=== PATIENT | male | born 1980 | race Caucasian/White ===

== ENCOUNTER 2016-12-27 06:05 | Emergency (ER) | payer OTHER ==
[2016-12-27 06:25] VITALS: BP 117/77; PULSE 83; RESP 16; TEMP 98.4; O2SAT 98
--- NOTE | 2016-12-27 06:47 | C.PDOC ---
History Of Present Illness Pt with c/o fo constipation x 3 days now with rectal pain on defecation. Denies rectal bleeding, abdominal pain, vomiting or fever Pt is S/P Gastric sleeve sx 3 weeks ago. Time Seen by Provider: 12/27/16 06:39 Chief Complaint (Nursing): GI Problem History Per: Patient History/Exam Limitations: no limitations Current Symptoms Are (Timing): Still Present Severity: Moderate Past Medical History Vital Signs: Last Vital Signs Temp 98.4 F 12/27/16 06:17 Pulse 83 12/27/16 06:17 Resp 16 12/27/16 06:17 BP 117/77 12/27/16 06:17 Pulse Ox 98 12/27/16 06:17 - Medical History PMH: Atrial Fibrillation, HTN Other Surgeries: Gastric Sleeve Family History: States: Unknown Family Hx - Social History Hx Tobacco Use: Yes Hx Alcohol Use: No Hx Substance Use: No - Immunization History Hx Influenza Vaccination: Yes Review Of Systems Gastrointestinal: Positive for: Constipation, Rectal Pain. Negative for: Melena Physical Exam - Physical Exam Appears: Well, Non-toxic Head: Atraumatic Eye(s): bilateral: Normal Inspection, PERRL Oral Mucosa: Moist Gastrointestinal/Abdominal: Normal Exam, Soft, No Tenderness Rectal: No Hemorrhoids, Tenderness (small fissures noticed at 5 and 7 oclock areas, no mass, no fluctuance, no bleeding) ED Course And Treatment O2 Sat by Pulse Oximetry: 98 Disposition - Disposition Referrals: Dequan Palacios MD [Staff Provider] - Disposition: HOME/ ROUTINE Disposition Time: 06:52 Condition: STABLE Additional Instructions: Take meds as prescribed Use sitz baths Follow up with your doctor Return to ER if worse Prescriptions: Hydrocortisone [Anusol-HC] 25 mg RC BID #20 sup Docusate [Colace] 100 mg PO TID #30 cap Instructions: Anal Fissure (ED) - Clinical Impression Clinical Impression: Anal fissure, unspecified
== END 2016-12-27 07:07 | disposition home or self-care (01) ==
LOC: C.ER 06:05
DX: K60.2 Anal fissure, unspecified (principal)

== ENCOUNTER 2016-12-28 01:08 | Day surgery (SDC) | payer OTHER ==
[2016-12-28] MEDS ORDERED: Morphine 4 MG/ML VIAL ONE ×2 (02:04→04:44)
[2016-12-28 02:17] LABS: BASO % 0.2 % (0.0-2.0); EOS # 0.1 K/uL (0.0-0.7); EOS % 0.8 % (0.0-4.0); HEMATOCRIT 38.5 % (35.0-51.0); LYMPH % 22.2 % (20.0-40.0); MEAN CELL VOLUME 86.8 fL (80.0-94.0); MEAN CORPUSCULAR HEMOGLOBIN 28.6 pg (27.0-31.0); MEAN PLATELET VOLUME 10.3 fL (7.2-11.7); MONO # 1.5 K/uL (0.0-0.8); MONO % 11.3 % (0.0-10.0); RED CELL DISTRIBUTION WIDTH 12.6 % (11.5-14.5); WHITE BLOOD COUNT 13.7 K/uL (4.8-10.8)
[2016-12-28 02:25] LABS: CHLORIDE 100 mmol/L (98-107); POTASSIUM 4.2 mmol/L (3.6-5.2); SODIUM 136 mmol/L (132-148)
[2016-12-28 02:28] LABS: BLOOD UREA NITROGEN 6 mg/dL (9-20); CARBON DIOXIDE 23 mmol/L (22-30); GFR AFRICAN-AMERICAN > 60; GLUCOSE,RANDOM 102 mg/dL (75-110)
[2016-12-28] MEDS ORDERED: Iodixanol 320 MG/ML 100 ML BOTTLE IV ONE (02:48)
--- NOTE | 2016-12-28 03:46 | C.PDOC ---
History Of Present Illness 36 year old male presents to the ER with a complaints of rectal pain for the past 2 days. Patient was seen in ED yesterday, was diagnosed with rectal fissure - given Anusol and stool softener. He states his symptoms have worsened , and he has been unable to sleep due to pain. Patient denies fever, abdominal pain, rectal bleeding, trauma/injuries. Time Seen by Provider: 12/28/16 01:24 Chief Complaint (Nursing): GI Problem History Per: Patient History/Exam Limitations: no limitations Onset/Duration Of Symptoms: Days (2) Current Symptoms Are (Timing): Still Present Severity: Moderate Quality Of Discomfort: "Pain" Associated Symptoms: denies: Fever, Other (abdominal pain, rectal bleed) Past Medical History Reviewed: Historical Data, Nursing Documentation, Vital Signs Vital Signs: Last Vital Signs Temp 97.9 F 12/29/16 07:35 Pulse 64 12/29/16 07:35 Resp 17 12/29/16 07:35 BP 108/63 12/29/16 07:35 Pulse Ox 97 12/29/16 07:35 - Medical History PMH: Atrial Fibrillation, HTN - [facility] Procedures DRAINAGE OF RECTUM WITH DRAINAGE DEVICE, PERC APPROACH (12/28/16) DRAINAGE OF RECTUM, PERCUTANEOUS APPROACH, DIAGNOSTIC (12/28/16) INSPECTION OF LOWER INTESTINAL TRACT, ENDO (12/28/16) Family History: States: No Known Family Hx - Social History Hx Tobacco Use: Yes Hx Alcohol Use: No Hx Substance Use: No - Immunization History Hx Influenza Vaccination: Yes Review Of Systems Except As Marked, All Systems Reviewed And Found Negative. Constitutional: Negative for: Fever, Chills Cardiovascular: Negative for: Chest Pain, Palpitations Respiratory: Negative for: Cough, Shortness of Breath Gastrointestinal: Positive for: Rectal Pain. Negative for: Nausea, Vomiting, Abdominal Pain, Diarrhea, Melena, Hematochezia Physical Exam - Physical Exam Appears: Non-toxic, Other (Mild to moderate distress) Skin: Normal Color, Warm, Dry Head: Normacephalic Oral Mucosa: Moist Cardiovascular: Rhythm Regular Respiratory: Normal Breath Sounds, No Rales, No Rhonchi, No Wheezing Gastrointestinal/Abdominal: Normal Exam, Bowel Sounds, Soft, No Tenderness, Other (Obese) Rectal: No Melena, No Hemorrhoids, Tenderness (at 7'o clock abscess visualized, (+) TTP ), Other (Erythemous surrounding anal opening, no bleeding, no internal masses ) Neurological/Psych: Oriented x3 ED Course And Treatment - Laboratory Results Result Diagrams: 12/28/16 02:14 12/28/16 02:14 ECG: Interpreted By Me, Viewed By Me (NSR 74 bpm, normal axis, RBBB, no acute ST /T wave changes) ECG Interpretation: No Acute Changes, Abnormal O2 Sat by Pulse Oximetry: 98 (Room air) Pulse Ox Interpretation: Normal - Radiology CXR: Interpreted by Me, Viewed By Me (NO INFILTRATES/EFFUSIONS) - CT Scan/US CT PELVIS WITH IV CONTRAST Other Rad Studies (CT/US): Read By Radiologist, Radiology Report Reviewed CT/US Interpretation: Name: DILIA JOYCE Age: 36Years M Date: 12/28/2016. Requesting Physician: DONG ORTEZ : 1980. [facility] Procedure Ordered As Accession Number of Images. CT PELVIS W CT PELVIS W IV CONTRAST ONLY [id number]. Provided Clinical History: RECTAL PAIN SWELLING, R/O ABSCESS. Page 1 of 2. EXAM: CT Pelvis With Intravenous Contrast. CLINICAL HISTORY: 36 years old, male; Pain and signs and symptoms; Swelling or effusion of joint. and other: Rectal pain, and R/O abscess; Bilateral; Abdominal pain and perianal pain; Lower. abdomen; Prior surgery; Additional info: Rectal pain swelling, R/O abscess. TECHNIQUE: Axial computed tomography images of the pelvis with intravenous contrast. This CT. exam was performed using one or more of the following dose reduction techniques: automated. exposure control, adjustment of the mA and/or kV according to patient size, and/or use of iterative. reconstruction technique. Coronal and sagittal reformatted images were created and reviewed. COMPARISON: No relevant prior studies available. FINDINGS: Bowel: Unremarkable. Appendix: Normal appendix. Intraperitoneal space: Unremarkable. No free air. No significant fluid collection. Bladder: Unremarkable. No mass. Reproductive: Unremarkable as visualized. Bones/joints: No acute fracture. No dislocation. Soft tissues: 3.0 x 2.8 cm perirectal abscess immediately posterior to the anus. Vasculature : Unremarkable. No lower abdominal aortic aneurysm. Lymph nodes: Small retroperitoneal lymph nodes which are within normal limits in size. IMPRESSION : 3.0 x 2.8 cm perirectal abscess immediately posterior to the anus. Thank you for allowing us to participate in the care of your patient. Dictated and Authenticated by: Prudencio Staton MD. 12/28/2016 3:59 AM Eastern Time ([place] & [place]) Progress Note: Blood work and CT scan of pelvis w/ IV constrast ordered and reviewed. Patient given IV morphine for pain. 4:20am - Call placed to Dr. Houser's service, pending call back. 5:05am- Spoke with Dr. Houser, he states he is going away this morning, and requests I speak with Dr. Shivam Blair. Pending call back. 5:10am- Spoke with Dr. Blair, she would like surgery resident to come and evaluate patient. 5:40pm- Patient evaluated by surgery resident Dr. Acosta - Patient will need to be admitted, get Iv antibiotics and drained in the OR. - Physician Consult Information Physician Contacted: Shivam Blair Disposition - Disposition Disposition: HOSPITALIZED Disposition Time: 05:48 Condition: STABLE - Clinical Impression Clinical Impression: Perirectal abscess - Scribe Statement The provider has reviewed the documentation as recorded by the Scribe Kevin Allen All medical record entries made by the Scribe were at my direction and personally dictated by me. I have reviewed the chart and agree that the record accurately reflects my personal performance of the history, physical exam, medical decision making, and the department course for this patient. I have also personally directed, reviewed, and agree with the discharge instructions and disposition. Decision To Admit - Pt Status Changed To: Hospital Disposition Of: Inpatient - Admit Certification Admit to Inpatient:: After my assessment, the patient will require hospitalization for at least two midnights. This is because of the severity of symptoms shown, intensity of services needed, and/or the medical risk in this patient being treated as an outpatient. - InPatient: Physician Admission Certification:: see notes - . Bed Request Type: Regular Admitting Physician: Shivam Blair Patient Diagnosis: Perirectal abscess
[2016-12-28] MEDS ORDERED: Sodium Chloride 0.9% 1,000 ML IV ONE (04:38)
[2016-12-28] MEDS ORDERED: metroNIDAZOLE IV 500 mg/100 ml 100 ML IV STA (05:50)
[2016-12-28] MEDS ORDERED: Ciprofloxacin 400mg/200ml D5W 200 ML IV STA (05:50)
[2016-12-28] MEDS ORDERED: metroNIDAZOLE IV 500 mg/100 ml 100 ML ONE (06:11)
--- NOTE | 2016-12-28 06:19 | CP.PCM.HP ---
History of Present Illness - History of Present Illness History of Present Illness: 36 M w/ PMHx of Afib presents to ED w/ complaints of rectal pain. Patient reports pain began about 2 days ago, after eating soup. Patient was in ED yesterday (12/27), and was given anuson and stool softener and d/c'ed home. However, patient states pain worsened and decided to come back. Patient experiences sharp pain along anal region while sitting, walking, and defecating. Patient reports this is the first time he has experienced this. Patient denies fever/chills, chest pain/SOB, hematemesis/hematochezia. Patient reports pain with defecation. PMHx: Afib Allergies: NKDA Present on Admission - Present on Admission Any Indicators Present on Admission: No Review of Systems - Review of Systems Review of Systems: 12 pt ROS carried out, unremarkable; except as stated in HPI Past Patient History - Past Medical History & Family History Past Medical History?: Yes - Past Social History Smoking Status: Former Smoker - CARDIAC Hx Atrial Fibrillation: Yes Hx Hypertension: Yes - NEUROLOGICAL Hx Neurological Disorder: No - HEENT Hx HEENT Problems: No - ENDOCRINE/METABOLIC Hx Endocrine Disorders: No - HEMATOLOGICAL/ONCOLOGICAL Hx Blood Disorders: No - INTEGUMENTARY Hx Dermatological Problems: No - MUSCULOSKELETAL/RHEUMATOLOGICAL Hx Musculoskeletal Disorders: No Hx Falls: No - GASTROINTESTINAL Hx Gastrointestinal Disorders: No - GENITOURINARY/GYNECOLOGICAL Hx Genitourinary Disorders: No - PSYCHIATRIC Hx Substance Use: No - SURGICAL HISTORY Hx Surgeries: Yes Hx Gastric Bypass Surgery: Yes (Gastric sleeve 3 weeks ago) Hx Herniorrhaphy: Yes (10 yrs ago) Other/Comment: ablation 2 dys ago - ANESTHESIA Hx Anesthesia: Yes Hx Anesthesia Reactions: No Hx Malignant Hyperthermia: No Meds Allergies/Adverse Reactions: Allergies Allergy/AdvReac Type Severity Reaction Status Date / Time No Known Allergies Allergy Verified 12/27/16 06:25 Physical Exam - Constitutional Appears: No Acute Distress - Head Exam Head Exam: NORMOCEPHALIC - Eye Exam Eye Exam: Normal appearance - ENT Exam ENT Exam: Mucous Membranes Moist - Respiratory Exam Respiratory Exam: NORMAL BREATHING PATTERN - Cardiovascular Exam Cardiovascular Exam: +S1, +S2 - GI/Abdominal Exam GI & Abdominal Exam: Soft - Rectal Exam Additional comments: Tenderness along radha-anal region on palpation radha-anal erythema along 12-6'oclock patient most tender along 8-12'clock region No drainage noted - Neurological Exam Neurological exam: Alert, Oriented x3 - Psychiatric Exam Psychiatric exam: Normal Mood - Skin Skin Exam: Dry, Erythema, Warm Results - Vital Signs Recent Vital Signs: Last Vital Signs Temp 97.9 F 12/28/16 05:04 Pulse 81 12/28/16 05:04 Resp 16 12/28/16 05:04 BP 131/84 12/28/16 05:04 Pulse Ox 98 12/28/16 06:15 - Labs Result Diagrams: 12/28/16 02:14 12/28/16 02:14 Assessment & Plan - Assessment and Plan (Free Text) Assessment: 36M w/ radha-rectal abscess -Schedule patient for OR for I&D -NPO -IVF -ABx -Analgesics -Further recs per Dr. Blair
[2016-12-28] MEDS: Lactated Ringer's 1,000 ML IV SCH ×3 (06:24→22:57)
[2016-12-28] MEDS ORDERED: Ciprofloxacin 400mg/200ml D5W 200 ML IVPB ONE (06:27)
[2016-12-28 06:41] LABS: INR 1.3
[2016-12-28] MEDS ORDERED: Pneumococcal 23-Valent Vaccine IM ONE (08:14)
--- NOTE | 2016-12-28 08:41 | CT ---
CT pelvis History: Rectal pain. Swelling. Comparison: None available. Technique: Axial computed tomographic images of the pelvis was performed with intravenous contrast. Subsequently, sagittal and coronal reformatted images were obtained. Radiation dose: Total exam DLP = 964 mGy-cm. This CT exam was performed using one or more of the following dose reduction techniques: Automated exposure control, adjustment of the mA and/or kV according to patient size, and/or use of iterative reconstruction technique. Findings: Visualized bowel is preserved. Normal appendix. Urinary bladder is preserved. Degenerative changes in the the spine. 3.0 x 2.8 centimeter perirectal abscess immediately posterior to the anus. Shotty small retroperitoneal lymph nodes are noted. Impression: 3.0 x 2.8 centimeter perirectal abscess immediately posterior to the anus. These findings were preliminarily reported at 3:59 a.m. on 12/28/[address] Prudencio Staton from [facility].
--- NOTE | 2016-12-28 08:56 | RAD ---
PROCEDURE: CHEST RADIOGRAPH, 1 VIEW HISTORY: preop COMPARISON: 03/13/2015 FINDINGS: LUNGS: No focal infiltrate or effusion. PLEURA: No pneumothorax or pleural fluid seen. CARDIOVASCULAR: Normal. OSSEOUS STRUCTURES: No significant abnormalities. VISUALIZED UPPER ABDOMEN: Normal. OTHER FINDINGS: Soft tissue and or vascular radiopaque densities in the supra and radha clavicular regions which may be external. Clinical correlation. IMPRESSION: No active disease.
[2016-12-28] MEDS ORDERED: Propofol 10 mg/ml Inj (20 ML) ONE (13:51)
[2016-12-28] MEDS ORDERED: Midazolam 2 MG/2 ML VIAL ONE (13:51)
[2016-12-28] MEDS ORDERED: Lactated Ringer's 1,000 ML IV ONE ×2 (14:00→15:45)
--- NOTE | 2016-12-28 14:39 | CARD ---
APPROVED REPORT EKG Measurement Heart [id number] MA [id number] <Conclusion> Poor data quality, interpretation may be adversely affected Normal sinus rhythm Right bundle branch block Minimal voltage criteria for LVH, may be normal variant Abnormal ECG
[2016-12-28] MEDS ORDERED: Neostigmine Methylsulfate 3mg/3ml Syringe IV ONE (14:42)
[2016-12-28] MEDS ORDERED: HYDROmorphone 0.5 mg/0.5 ml ISec IVP PRN (15:09)
--- NOTE | 2016-12-28 15:26 | PCM.SURG1 ---
Surgeon's Initial Post Op Note - Surgeon's Notes Surgeon: [employer] Illustrator: Adam Type of Anesthesia: General Endo Anesthesia Administered By: Hiram/Daniel Pre-Operative Diagnosis: Rectal abscess Operative Findings: 20ml purulent fluid aspirated, I&D into deep plane Post-Operative Diagnosis: Rectal abscess Operation Performed: Sigmoidoscopy, drainage of rectal abscess Specimen/Specimens Removed: pus for C&S Estimated Blood Loss: EBL {In ML}: 10 Drains Used: Sharon Post-Op Condition: Good Date of Surgery/Procedure: 12/28/16 Time of Surgery/Procedure: 15:27
[2016-12-28] MEDS ORDERED: HYDROmorphone 0.5 mg/0.5 ml ISec ONE (15:33)
[2016-12-28] MEDS: metroNIDAZOLE IV 500 mg/100 ml 100 ML IVPB SCH ×2 (16:00→21:23)
--- NOTE | 2016-12-28 16:06 | OP ---
PROCEDURE DATE: 12/28/2016 SURGEON: Dr. Shivam Blair. EQUIPMENT ASSOCIATE: Dr. Medina. ANESTHESIA: General, JOSE Russ. PREOPERATIVE DIAGNOSIS: Rectal abscess. POSTOPERATIVE DIAGNOSIS: Rectal abscess. PROCEDURE: Sigmoidoscopy and drainage of rectal abscess. DESCRIPTION OF OPERATION: The patient was anesthetized and placed in lithotomy position. The anal a fredo was prepped and draped in the usual sterile manner. There was no perirectal swelling or changes noted to either buttock or perineal area and, although the CT scan indicated a posterior rectal absce ss and the patient had acute rectal pain, there were no external stigmata of abscess. Rigid sigmoido scopy was performed to 15 cm with again no specific findings, including any bulging or asymmetry note d on the rectal wall. Upon completing the sigmoidoscopy, there was noted to be a small amount of swe lling possibly to the left posterior aspect of the rectum at the 5 o'clock location very close to the anal verge and an 18-gauge spinal needle was inserted into this area and passed upward approximately 4 cm at which point, purulent material was aspirated. Approximately 10 mL of brown purulent fluid w as aspirated. This was sent for culture and sensitivity. A small incision was made then near the en try point of the needle and a clamp was passed upward into the area of the abscess cavity with draina ge of additional material from this area. When this had been completed, a quarter-inch Sharon drain was passed up into the area of the abscess cavity and taped to the buttock on the left side. A dry sterile dressing was applied. The patient tolerated the procedure well and transferred to [facility] in stable condition. Estimated blood loss for the procedure was 10 mL. Shivam Blair MD cc: 58 TT: 12/28/2016 16:06:37 pr
[2016-12-28] MEDS: HYDROmorphone 1 mg/ml ISec IVP PRN (20:50)
[2016-12-29] MEDS: HYDROmorphone 1 mg/ml ISec IVP PRN ×2 (02:09→06:11)
[2016-12-29] MEDS: metroNIDAZOLE IV 500 mg/100 ml 100 ML IVPB SCH ×2 (05:09→13:49)
[2016-12-29] MEDS: Lactated Ringer's 1,000 ML IV SCH (05:15)
[2016-12-29 08:08] VITALS: BP 108/63; PULSE 64; RESP 17; TEMP 97.9
[2016-12-29] MEDS ORDERED: Oxycodone/Acetaminophen 5/325 mg Tab PO PRN (11:20)
--- NOTE | 2016-12-29 12:09 | CP.PCM.PN ---
Subjective - Date & Time of Evaluation Date of Evaluation: 12/29/16 Time of Evaluation: 09:15 - Subjective Subjective: General Surgery Dr. Blair Pt S&E @bedside. Pt had incision and drainage of rectal abscess in OR yesterday. Pt tolerated the procedure well w/ no complications. NAEO. pain much improved. denies F/C, N/V. (+) BM overnight. [place] drain placed during surgery fell out which was anticipated. Pt tolerating Bariatric diet. Objective - Vital Signs/Intake and Output Vital Signs (last 24 hours): Temp Pulse Resp BP Pulse Ox 97.9 F 64 17 108/63 97 12/29/16 07:35 12/29/16 07:35 12/29/16 07:35 12/29/16 07:35 12/29/16 07:35 Intake and Output: 12/29/16 12/29/16 06:59 18:59 Intake Total 2275 Output Total 650 Balance 1625 - Medications Medications: Current Medications Docusate Sodium (Colace) 100 mg PO BID [facility] Last Admin: 12/29/16 10:36 Dose: 100 mg Lactated Ringer's (Lactated Ringer's) 1,000 mls @ 125 mls/hr IV .Q8H [facility] Last Admin: 12/29/16 05:15 Dose: 125 mls/hr Metronidazole (Flagyl) 100 mls @ 100 mls/hr IVPB Q8 [facility] Last Admin: 12/29/16 05:09 Dose: 100 mls/hr Lisinopril (Zestril) 10 mg PO DAILY [facility] Last Admin: 12/29/16 10:40 Dose: 10 mg Oxycodone/Acetaminophen (Percocet 5/325 Mg Tab) 2 tab PO Q6H PRN PRN Reason: Pain, moderate (4-7) Stop: 01/01/17 11:21 Pneumococcal Polyvalent Vaccine (Pneumovax 23 Vaccine) 0.5 ml IM .ONCE ONE Stop: 12/31/16 10:01 Sennosides (Senokot Tab) 8.6 mg PO DAILY [facility] Last Admin: 12/29/16 10:37 Dose: 8.6 mg Sotalol HCl (Betapace) 120 mg PO BID [facility] Last Admin: 12/29/16 10:36 Dose: 120 mg - Labs Labs: PT 14.9 SECONDS (9.7-12.2) H 12/28/16 06:06 INR 1.3 12/28/16 06:06 APTT 32 SECONDS (21-34) 12/28/16 06:06 - Constitutional Appears: Non-toxic, No Acute Distress - Head Exam Head Exam: NORMAL INSPECTION - Eye Exam Eye Exam: Normal appearance - ENT Exam ENT Exam: Mucous Membranes Moist - Respiratory Exam Respiratory Exam: NORMAL BREATHING PATTERN. absent: Accessory Muscle Use, Respiratory Distress - GI/Abdominal Exam GI & Abdominal Exam: Soft. absent: Distended, Tenderness - Rectal Exam Additional comments: improved erythema and induration of R lateral anus. dressing in place. some serosanguinous staining present. - Neurological Exam Neurological Exam: Alert, Awake, Oriented x3 - Psychiatric Exam Psychiatric exam: Normal Affect, Normal Mood - Skin Skin Exam: Dry, Intact, Normal Color, Warm Assessment and Plan - Assessment and Plan (Free Text) Assessment: 36 y/o M w/ rectal abscess POD#1 s/p I&D in OR - Augmentin BID x7days - Colace and Senna as needed - dressing changes PRN - Pt cleared for discharge to Home. instructions reviewed w/ pt. Pt discussed w/ Dr. Johnnie Medina DO PGY1
[2016-12-31] MEDS ORDERED: Pneumococcal 23-Valent Vaccine IM ONE (10:00)
[2017-01-05 20:25] VITALS: O2SAT 98
== END 2016-12-29 14:43 | disposition home or self-care (01) ==
LOC: SUPCPDRO 01:08 → C.ER 01:08 → UNDOADMIN 05:48 → C.9E 05:48 → C.SDS 06:08 → C.6T 06:18 → C.9E 06:18 → C.SDS 12-29 14:43 → UNDODISIN 12-29 14:43
PROVIDERS: ATTEND Specialist
PROC: 0DJD8ZZ Inspection of Lower Intestinal Tract, Via Natural or Artificial Opening Endoscopic (ICD-10-PCS; 2016-12-28)
PROC: 0D9P3ZX Drainage of Rectum, Percutaneous Approach, Diagnostic (ICD-10-PCS; 2016-12-28)
PROC: 0D9P30Z Drainage of Rectum with Drainage Device, Percutaneous Approach (ICD-10-PCS; principal; 2016-12-28 11:30)
DX: K61.1 Rectal abscess (principal); B96.20 Unspecified Escherichia coli [E. coli] as the cause of diseases classified elsewhere; I10 Essential (primary) hypertension; E66.9 Obesity, unspecified; Z68.38 Body mass index [BMI] 38.0-38.9, adult; Z98.84 Bariatric surgery status; Z87.891 Personal history of nicotine dependence
CPT/HCPCS: 45005; 45330; 71010; 72193; 80048; 85025; 85610; 85730; 86850; 86900; 87040; 87070; 87181; 93005; 96361; 96365; 96375; 96376; 99285; J0744; J1170; J2250; J2270; J2704; J2710; J3010; J7040; J7120; Q9967

== ENCOUNTER 2018-02-22 18:04 | Emergency (ER) | payer OTHER ==
[2018-02-22 18:14] VITALS: BMI 29.7
[2018-02-22] MEDS ORDERED: Aspirin 325 mg EC Tablets PO STA (18:14)
[2018-02-22 18:20] VITALS: O2SAT 100
[2018-02-22 18:24] LABS: BASO % 0.4 % (0.0-2.0); EOS # 0.1 K/uL (0.0-0.7); EOS % 0.8 % (0.0-4.0); HEMOGLOBIN 14.8 g/dL (12.0-18.0); LYMPH # 3.4 K/uL (1.0-4.3); LYMPH % 39.4 % (20.0-40.0); MEAN CELL VOLUME 90.4 fL (80.0-94.0); MEAN CORPUSCULAR HEMOGLOBIN 30.4 pg (27.0-31.0); MEAN CORPUSCULAR HGB CONC 33.7 g/dL (33.0-37.0); MEAN PLATELET VOLUME 8.8 fL (7.2-11.7); MONO # 0.8 K/uL (0.0-0.8); MONO % 9.4 % (0.0-10.0); NEUT # 4.4 K/uL (1.8-7.0); NRBC % 0.1 % (0.0-2.0); RBC 4.86 Mil/uL (4.40-5.90); RED CELL DISTRIBUTION WIDTH 12.9 % (11.5-14.5); WHITE BLOOD COUNT 8.7 K/uL (4.8-10.8)
[2018-02-22 18:37] LABS: ALB/GLOB RATIO 1.2 (1.0-2.1); ALBUMIN 4.3 g/dL (3.5-5.0); ALT/SGPT 19 U/L (21-72); AST/SGOT 20 U/L (17-59); BLOOD UREA NITROGEN 9 mg/dL (9-20); CALCIUM 9.8 mg/dl (8.6-10.4); D DIMER < 200 ng/mlDDU (0-243); GFR AFRICAN-AMERICAN > 60; GFR NON-AFRICAN AMERICAN > 60; INR 1.1; PARTIAL THROMBOPLASTIN TIME 34 SECONDS (21-34); PROTHROMBIN TIME 11.9 SECONDS (9.7-12.2)
[2018-02-22 18:49] LABS: B-TYPE NATRIURETIC PEPTIDE 25.6 pg/mL (0-450)
[2018-02-22 18:59] LABS: SQUAMOUS EPITHIAL < 1 /hpf (0-5); URINE BACTERIA RARE (<OCC); URINE BILIRUBIN NEGATIVE (NEGATIVE); URINE BLOOD NEGATIVE (NEGATIVE); URINE CLARITY Clear (Clear); URINE COLOR Yellow (YELLOW); URINE GLUCOSE (UA) NORMAL (Normal); URINE LEUKOCYTE ESTERASE NEG Leu/uL (Negative); URINE PROTEIN NEGATIVE (NEGATIVE); URINE UROBILINOGEN NORMAL mg/dL (0.2-1.0)
[2018-02-22 19:11] LABS: BARBITURATES, UR NEGATIVE (NEGATIVE); BENZODIAZEPINES, UR NEGATIVE (NEGATIVE); OPIATES, UR NEGATIVE (NEGATIVE); PHENCYCLIDINE, UR NEGATIVE (NEGATIVE)
--- NOTE | 2018-02-22 19:21 | C.PDOC ---
History Of Present Illness 37 y/o male brought to ER by ambulance complaining of left- sided chest pressure which began today. Patient states that he a similar episode of chest pressure in the past in February 2015. At the time, patient was found to have rapid atrial fibrillation, had a negative PE study and was transferred out for RFA. Of note, patient reports that he was morbidly obese and his weight was 310 lbs. He had gastric banding and he currently weighs 190 lbs. Pt non-compliant with PPI/proton pump inhibitors after gastric banding. Time Seen by Provider: 02/22/18 18:16 Chief Complaint (Nursing): Weakness/Neurological Deficit History Per: Patient History/Exam Limitations: no limitations Onset/Duration Of Symptoms: Days Current Symptoms Are (Timing): Still Present Severity: Moderate Past Medical History Reviewed: Historical Data, Nursing Documentation, Vital Signs Vital Signs: Last Vital Signs Temp 98.3 F 02/22/18 18:15 Pulse 80 02/22/18 19:02 Resp 16 02/22/18 19:02 BP 124/73 02/22/18 19:02 Pulse Ox 100 02/22/18 19:25 - Medical History PMH: Atrial Fibrillation (s/p JUSTIN), HTN Denies: Cardia Arrhythmia, CHF, Hypercholesterolemia, Mitral Valve Prolapse, Peripheral Edema, Chronic Kidney Disease Surgical History: Denies: Pacemaker - [facility] Procedures DRAINAGE OF RECTUM WITH DRAINAGE DEVICE, PERC APPROACH (12/28/16) DRAINAGE OF RECTUM, PERCUTANEOUS APPROACH, DIAGNOSTIC (12/28/16) INSPECTION OF LOWER INTESTINAL TRACT, ENDO (12/28/16) Family History: States: No Known Family Hx - Social History Hx Tobacco Use: Yes Hx Alcohol Use: No Hx Substance Use: No - Immunization History Hx Influenza Vaccination: Yes Review Of Systems Except As Marked, All Systems Reviewed And Found Negative. Constitutional: Negative for: Fever, Chills Cardiovascular: Positive for: Other (chest pressure) Respiratory: Negative for: Cough, Shortness of Breath Physical Exam - Physical Exam Appears: Non-toxic, No Acute Distress, Other (athletic white male) Skin: Normal Color, Warm, Dry Head: Atraumatic, Normacephalic Eye(s): bilateral: Normal Inspection Nose: Normal Oral Mucosa: Moist Neck: Supple Chest: Symmetrical, Other (pain in left chest not digitally or positionally reproducible) Cardiovascular: Rhythm Regular Respiratory: Normal Breath Sounds, No Rales, No Rhonchi, No Wheezing Neurological/Psych: Oriented x3, Normal Speech ED Course And Treatment - Laboratory Results Result Diagrams: 02/22/18 18:21 02/22/18 18:21 Lab Interpretation: Normal (trop/bnp/d-dimer neg.) ECG: Interpreted By Me, Viewed By Me ECG Rhythm: Sinus Rhythm Interpretation Of ECG: NSR with RBBB Rate From EC O2 Sat by Pulse Oximetry: 100 (RA) Pulse Ox Interpretation: Normal Progress Note: Labs, UA, ECG, CXR, Aspirin PO. maalox, protonix PO with immediate improvement of burning chest discomfort. Reevaluation Time: 20:07 Reassessment Condition: Improved Medical Decision Making Medical Decision Making: GERD non-compliant with PPI's after gastric banding max weight 310, now 190# s/s improved with maalox/protonix NSR and normal cardiac eval. Disposition Doctor Will See Patient In The: Office Counseled Patient/Family Regarding: Studies Performed, Diagnosis - Disposition Disposition: HOME/ ROUTINE Disposition Time: 20:08 Condition: GOOD Forms: [facility] ([employer]) - Clinical Impression Clinical Impression: Chest discomfort - Scribe Statement The provider has reviewed the documentation as recorded by the Kyle Neville Provider Attestation: All medical record entries made by the Scribe were at my direction and personally dictated by me. I have reviewed the chart and agree that the record accurately reflects my personal performance of the history, physical exam, medical decision making, and the department course for this patient. I have also personally directed, reviewed, and agree with the discharge instructions and disposition.
[2018-02-22] MEDS ORDERED: Alum-Mag Hydrox-Simethicone Susp (30 mL) PO STA (19:36)
[2018-02-22] MEDS ORDERED: Pantoprazole 40 mg EC Tab PO STA (19:36)
[2018-02-22] MEDS ORDERED: Alum-Mag Hydrox-Simethicone Susp (30 mL) ONE (19:53)
[2018-02-22] MEDS ORDERED: Pantoprazole 40 mg EC Tab PO ONE (19:53)
[2018-02-22 20:22] VITALS: BP 115/71; PULSE 84; RESP 18; TEMP 97.9
--- NOTE | 2018-02-23 07:47 | RAD ---
Chest x-ray single frontal view History: Shortness of breath. Comparison: 12/28/2016 Findings: Mild venous congestion. Heart size within normal limits. Degenerative changes in the spine. Impression: Mild venous congestion. Heart size within normal limits. Degenerative changes in the spine.
== END 2018-02-22 20:23 | disposition home or self-care (01) ==
LOC: C.ER 18:04
DX: R07.89 Other chest pain (principal)

== ENCOUNTER 2018-07-16 13:57 | Emergency (ER) | payer OTHER ==
[2018-07-16 13:58] VITALS: BMI 29.7
--- NOTE | 2018-07-16 14:47 | RAD ---
Date of service: 07/16/2018 PROCEDURE: CHEST RADIOGRAPH, 1 VIEW HISTORY: chest pain COMPARISON: Chest radiograph dated 02/22/2018. FINDINGS: LUNGS: Clear. PLEURA: No pneumothorax or pleural fluid seen. CARDIOVASCULAR: No aortic atherosclerotic calcifications present. Cardiomediastinal silhouette within normal limits. OSSEOUS STRUCTURES: No significant abnormalities. VISUALIZED UPPER ABDOMEN: Normal. OTHER FINDINGS: Bilateral nipple ornamentation. IMPRESSION: No active disease.
[2018-07-16 14:48] LABS: BASO % 0.5 % (0.0-2.0); EOS % 0.2 % (0.0-4.0); HEMOGLOBIN 14.7 g/dL (12.0-18.0); LYMPH # 2.2 K/uL (1.0-4.3); LYMPH % 24.8 % (20.0-40.0); MEAN CELL VOLUME 90.4 fL (80.0-94.0); MEAN CORPUSCULAR HEMOGLOBIN 30.4 pg (27.0-31.0); MEAN CORPUSCULAR HGB CONC 33.6 g/dL (33.0-37.0); MEAN PLATELET VOLUME 9.2 fL (7.2-11.7); MONO # 0.6 K/uL (0.0-0.8); NEUT % 67.5 % (50.0-75.0); RBC 4.85 Mil/uL (4.40-5.90); RED CELL DISTRIBUTION WIDTH 12.8 % (11.5-14.5); WHITE BLOOD COUNT 8.9 K/uL (4.8-10.8)
--- NOTE | 2018-07-16 14:53 | C.PDOC ---
History Of Present Illness 38 year old male with PMHx of Atrial fibrillation s/p ablation presents to ED for evaluation of persistent left sided chest pain that began 2.5 hours prior to arrival. Pain is described as throbbing and radiates to L arm. Associated symptoms include palpitations, tingling of L hand, L leg numbness, mild occipital headache, lightheadedness and an episode of shortness of breath that has since resolved. Patient denies diaphoresis, focal weakness, abdominal pain, nausea, vomiting, fever, and chills. <Treasure Luevano P - Last Filed: 07/16/18 16:21> <Treasure Luevano P - Last Filed: 07/16/18 16:21> <Scout Lopez DO - Last Filed: 07/16/18 19:13> Time Seen by Provider: 07/16/18 14:16 Chief Complaint (Nursing): Chest Pain Past Medical History Vital Signs: Last Vital Signs Temp 98.3 F 07/16/18 14:11 Pulse 75 07/16/18 14:11 Resp 20 07/16/18 14:11 BP 126/78 07/16/18 14:11 Pulse Ox 99 07/16/18 14:11 - Medical History PMH: Atrial Fibrillation (s/p JUSTIN), HTN Denies: Cardia Arrhythmia, CHF, Hypercholesterolemia, Mitral Valve Prolapse, Peripheral Edema, Chronic Kidney Disease Surgical History: Denies: Pacemaker - [facility] Procedures DRAINAGE OF RECTUM WITH DRAINAGE DEVICE, PERC APPROACH (12/28/16) DRAINAGE OF RECTUM, PERCUTANEOUS APPROACH, DIAGNOSTIC (12/28/16) INSPECTION OF LOWER INTESTINAL TRACT, ENDO (12/28/16) Family History: States: Unknown Family Hx - Social History Hx Tobacco Use: Yes Hx Alcohol Use: Yes Hx Substance Use: No - Immunization History Hx Influenza Vaccination: Yes <Treasure Luevano P - Last Filed: 07/16/18 16:21> Vital Signs: Last Vital Signs Temp 98.9 F 07/16/18 16:40 Pulse 67 07/16/18 16:40 Resp 18 07/16/18 16:40 BP 114/71 07/16/18 16:40 Pulse Ox 98 07/16/18 16:40 - [facility] Procedures DRAINAGE OF RECTUM WITH DRAINAGE DEVICE, PERC APPROACH (12/28/16) DRAINAGE OF RECTUM, PERCUTANEOUS APPROACH, DIAGNOSTIC (12/28/16) INSPECTION OF LOWER INTESTINAL TRACT, ENDO (12/28/16) <Scout Lopez DO - Last Filed: 07/16/18 19:13> Review Of Systems Constitutional: Negative for: Fever, Chills, Sweats Cardiovascular: Positive for: Chest Pain, Palpitations Respiratory: Positive for: Shortness of Breath. Negative for: Cough Gastrointestinal: Negative for: Nausea, Vomiting, Abdominal Pain Genitourinary: Negative for: Dysuria, Frequency, Incontinence Musculoskeletal: Positive for: Neck Pain, Shoulder Pain, Arm Pain Neurological: Positive for: Numbness (and tingling L hand and L leg). Negative for: Weakness <Treasure Luevano - Last Filed: 07/16/18 16:21> Physical Exam - Physical Exam Appears: Non-toxic, No Acute Distress Skin: Normal Color, Warm, Dry, Other (multiples tatoos noted to upper body) Head: Atraumatic, Normacephalic Eye(s): bilateral: PERRL, EOMI, right: Normal Inspection (Pterygium R eye) Lips: Normal Appearing Throat: Normal, No Erythema Neck: Normal, Normal ROM Cardiovascular: Rhythm Regular, No Rhythm Irregular, No Edema, No Friction Rub, No Murmur, No JVD Respiratory: Normal Breath Sounds, No Decreased Breath Sounds, No Accessory Muscle Use, No Rales, No Rhonchi, No Stridor, No Wheezing Gastrointestinal/Abdominal: Normal Exam, Bowel Sounds, No Soft, No Tenderness, No Guarding, No Rebound Extremity: Normal ROM, No Tenderness, No Pedal Edema, No Calf Tenderness, Capi llary Refill (normal) Pulses: Left Dorsalis Pedis: Normal, Right Dorsalis Pedis: Normal Neurological/Psych: Oriented x3, Normal Speech, Normal Cognition, Normal Cranial Nerves, No Cerebellar Signs, Normal Motor (5/5 strength in all extremities), No Normal Sensation (Reports increased sensation to R compared to L upper and lower extremity) <Treasure Luevano - Last Filed: 07/16/18 16:21> ED Course And Treatment - Laboratory Results Result Diagrams: 07/16/18 14:42 07/16/18 14:42 O2 Sat by Pulse Oximetry: 99 <Treasure Luevano - Last Filed: 07/16/18 16:21> - Laboratory Results Result Diagrams: 07/16/18 14:42 07/16/18 14:42 <Scout Lopez DO - Last Filed: 07/16/18 19:13> Medical Decision Making Medical Decision Making: Plan: CBC: WNL CMP: WN: Troponin: negative Ddimer: negative EKG: NSR at 77bpm, non-specific intraventricular block, CA 120, QRS 142, QTc 430 <Treasure Luevano P - Last Filed: 07/16/18 16:21> Disposition <Treasure Luevano - Last Filed: 07/16/18 16:21> - Disposition Disposition Time: 15:20 <Scout Lopez DO - Last Filed: 07/16/18 19:13> - Disposition Referrals: [facility] Constance Zamudio, [Non-Staff] - Disposition: HOME/ ROUTINE Condition: GOOD Additional Instructions: DILIA JOYCE, thank you for letting us take care of you today. The emergency medical care you received today was directed at your acute symptoms. If you were prescribed any medication, please fill it and take as directed. It may take several days for your symptoms to resolve. Return to the Emergency Department if your symptoms worsen, do not improve, or if you have any other problems. Please contact your doctor or call one of the physicians/clinics you have been referred to that are listed on the Patient Visit Information form that is included in your discharge packet. Bring any paperwork you were given at discharge with you along with any medications you are taking to your follow up visit. Our treatment cannot replace ongoing medical care by a primary care provider outside of the emergency department. Thank you for allowing the [facility] team to be part of your care today. Follow up with your primary care doctor in 2-3 days for re-evaluation and further management. Instructions: Chest Pain That Is Not Caused by the Heart (DC) Forms: Make YES! [employer] (Tongan), Work Excuse - Clinical Impression Clinical Impression: Non-cardiac chest pain
[2018-07-16 15:04] LABS: ALB/GLOB RATIO 1.3 (1.0-2.1); ALBUMIN 4.5 g/dL (3.5-5.0); ALT/SGPT 19 U/L (21-72); AST/SGOT 21 U/L (17-59); BLOOD UREA NITROGEN 8 mg/dL (9-20); CALCIUM 9.8 mg/dl (8.6-10.4); GFR NON-AFRICAN AMERICAN > 60
[2018-07-16] MEDS ORDERED: Aluminum Hydroxide/Magnesium Hydroxide Susp (30 mL) PO ONE (15:59)
[2018-07-16] MEDS ORDERED: Aluminum Hydroxide/Magnesium Hydroxide Susp (30 mL) ONE (16:38)
[2018-07-16 16:41] VITALS: BP 114/71; PULSE 67; RESP 18; TEMP 98.9; O2SAT 98
--- NOTE | 2018-07-17 12:28 | CARD ---
APPROVED REPORT Date of service: 07/16/2018 EKG Measurement Heart [id number] <Conclusion> Normal sinus rhythm Nonspecific intraventricular block Abnormal ECG
== END 2018-07-16 16:41 | disposition home or self-care (01) ==
LOC: C.ER 13:57
DX: R07.89 Other chest pain (principal)